=== PATIENT | male | born 1950 | race Caucasian/White ===

== ENCOUNTER 2017-12-31 10:21 | Day surgery (SDC) | payer OTHER, MEDICARE ==
[~2017-12-31 10:21] MED LIST: Lactated Ringers 1,000 ML IV SCH; Lidocaine 1%/Sod Bicarbonate in NS 8.4% 1 ML Syringe IDERM PRN; Sodium Chloride 0.9% 10 ML Syringe FLUSH PRN
--- NOTE | 2017-12-31 11:07 | PCM.PREANE ---
Preanesthetic Assessment - Anesthesia/Transfusion/Family Hx Anesthesia History: Prior Anesthesia Without Reaction Family History of Anesthesia Reaction: No Transfusion History: No Prior Transfusion(s) - Review of Systems General: Fatigue Pulmonary: No Symptoms Cardiovascular: No Symptoms Gastrointestinal: No Symptoms Neurological: Numbness (maybe right hand) - Physical Assessment NPO Status Date: 12/30/17 NPO Status Time: 00:00 Pulse: 51 O2 Sat by Pulse Oximetry: 100 Respiratory Rate: 20 Blood Pressure: 140/83 Temperature: 36.2 C Height: 1.75 m Weight: 69.853 kg ASA Class: 2 Mental Status: Alert & Oriented x3 Airway Class: Mallampati = 1 Dentition: Reports: Normal Dentition Thyro-Mental Finger Breadths: 3 Mouth Opening Finger Breadths: 3 ROM/Head Extension: Full Lungs: Clear to Auscultation, Normal Respiratory Effort Cardiovascular: Regular Rate, Regular Rhythm - Allergies Allergies/Adverse Reactions: Allergies Allergy/AdvReac Type Severity Reaction Status Date / Time No Known Allergies Allergy Verified 08/11/13 08:56 - Blood Blood Available: No Product(s) Available: None - Anesthesia Plan Pre-Op Medication Ordered: None - Acknowledgements Anesthesia Type Planned: MAC Pt an Appropriate Candidate for the Planned Anesthesia: Yes Alternatives and Risks of Anesthesia Discussed w Pt/Guardian: Yes Pt/Guardian Understands and Agrees with Anesthesia Plan: Yes PreAnesthesia Questionnaire - SUBSTANCE USE Smoking Status *Q: Former Smoker Tobacco Use Within Last Twelve Months: No Second Hand Smoke Exposure: No Days Per Week of Alcohol Use: 7 Number of Drinks Per Day: 1 Total Drinks Per Week: 7 Recreational Drug Use History: No - HOME MEDS Home Medications: Home Meds Acetaminophen [Tylenol Extra Strength] 500 mg PO ASDIRECTED PRN 12/30/17 [ History] Ascorbate Calcium [Vitamin C] 500 mg PO DAILY 12/30/17 [History] Aspirin [Adult Low Dose Aspirin EC] 81 mg PO DAILY 12/30/17 [History] Calcium Carb & Citrate/Vit D3 [Calcium + D3 ER Tablet] 1 tab PO DAILY 12/30/17 [ History] Cholecalciferol (Vitamin D3) [Vitamin D3] 1 tab PO DAILY 12/30/17 [History] Clorazepate Dipotassium [Tranxene T-Tab] 45 mg PO BID 12/30/17 [History] Lisinopril 10 mg PO DAILY 12/30/17 [History] Niacinamide [Niacin] 500 mg PO DAILY 12/30/17 [History] Garrison-3/DHA/Epa/Fish Oil [Garrison 3 500 Softgel] 1 cap PO DAILY 12/30/17 [History] PARoxetine HCl [Paxil] 20 mg PO DAILY 12/30/17 [History] Simvastatin [Zocor] 10 mg PO DAILY 12/30/17 [History] Ubidecarenone [Co Q-10] 1 cap PO DAILY 12/30/17 [History] - CURRENT (IN HOUSE) MEDS Current Meds: Current Medications Lactated Ringer's (Ringers, Lactated) 1,000 mls @ 125 mls/hr IV ASDIRECTED ALMA Stop: 12/31/17 23:00 Lidocaine/Sodium Bicarbonate (Buffered Lidocaine 1% In Ns 8.4%) 0.25 ml IDERM ONETIME PRN PRN Reason: Prior to IV Start Stop: 12/31/17 18:00 Sodium Chloride (Saline Flush) 10 ml FLUSH ASDIRECTED PRN PRN Reason: Keep Vein Open Stop: 12/31/17 18:00
[2017-12-31] MEDS ORDERED: Bupivacaine 0.25% 30 ML SDV ONE (11:08)
[2017-12-31] MEDS ORDERED: Propofol 200 MG/20 ML SDV ONE (11:13)
[2017-12-31] MEDS ORDERED: fentaNYL 100 MCG/2 ML SDV ONE (11:13)
[2017-12-31] MEDS ORDERED: Lidocaine 1% 4 ML ONE (11:14)
[2017-12-31] MEDS: fentaNYL 100 MCG/2 ML SDV IVPUSH PRN ×2 (12:52→13:05)
[2017-12-31] MEDS ORDERED: Acetaminophen/HYDROcodone 325-5 MG Tab PO PRN (12:59)
--- NOTE | 2017-12-31 13:56 | PCM.OPNOTE ---
- General Post-Op/Procedure Note Date of Surgery/Procedure: 12/31/17 Operative Procedure(s): closed reduction and casting of extra-articular right distal radius fracture Pre Op Diagnosis: right distal radius fracture Post-Op Diagnosis: Same Anesthesia Technique: MAC Primary Surgeon: Rome Garcia Anesthesia Provider: Pilo Atkins Investigations Manager: Carol Castano EBL in mLs: 0 Complications: None Condition: Good
--- NOTE | 2017-12-31 21:43 | OR ---
DATE OF OPERATION: 12/31/2017 SURGEON: Rome Garcia MD OPERATION PERFORMED: Closed reduction and casting, extra-articular right distal radius fracture. PREOPERATIVE DIAGNOSIS: Right distal radius fracture. POSTOPERATIVE DIAGNOSIS: Right distal radius fracture. ANESTHESIA: MAC. ANESTHESIA PROVIDER: Pilo Atkins CRNA BARGAIN TABLE CLERK: Carol Castano LPN ESTIMATED BLOOD LOSS: 0 mL. COMPLICATIONS: None. CONDITION: Stable. DESCRIPTION OF PROCEDURE: The patient was identified in the preoperative holding area. The proper site was marked and identified by the surgeon. The patient was taken back to the operating theater, where after adequate anesthesia, a time-out was performed. The right upper extremity then had C-arm fluoroscopy taken, showing significant dorsal displacement and shortening noted pre-reduction. At this time, traction was applied with ulnar deviation and was found to have adequate lutheran of all variables for the right distal radius fracture. At this time, a stockinette was placed, and a cast padding was placed, and first of all, fiberglass was applied. Three-point molding was then done to correct the apex volar angulation and keep it out to length. At both AP and lateral views, it was found to be adequately reduced. The patient had the cast finished and was sent to the PACU in stable condition. MMODAL /[id number]
--- NOTE | 2018-01-02 10:08 | CR ---
Right wrist: Six fluoroscopic spot views were obtained of the right wrist. Comparison: No previous right wrist exam. Distal radial fracture is noted. Study shows placement of fiberglass cast. Fluoroscopy time is given as 11.5 seconds. No additional abnormality is seen other than soft tissue swelling. Impression: 1. Distal radial fracture showing placement of fiberglass cast. Diagnostic code #2
== END 2017-12-31 15:07 | disposition home or self-care (01) ==
LOC: JD.SDS 10:21
PROVIDERS: ATTEND Orthopaedic Surgery
DX: S52.551A Other extraarticular fracture of lower end of right radius, initial encounter for closed fracture (principal); I10 Essential (primary) hypertension; E78.5 Hyperlipidemia, unspecified; E78.00 Pure hypercholesterolemia, unspecified; F41.9 Anxiety disorder, unspecified; F32.9 Major depressive disorder, single episode, unspecified; Z79.82 Long term (current) use of aspirin; Z79.899 Other long term (current) drug therapy; Z87.891 Personal history of nicotine dependence; V95.2 Other private fixed-wing aircraft accident injuring occupant
CPT/HCPCS: 25605; 76000; A9270; J2704; J3010; J7120; J2001; J3490